=== PATIENT | female | born 1985 | race African-American/Black ===

== ENCOUNTER 2024-11-02 21:33 | Emergency (ER) | payer OTHER ==
[~2024-11-02] VITALS: Ht 172.7 cm; Wt 82.0 kg
[2024-11-02 21:36] VITALS: TEMP 36.9; O2SAT 98
[2024-11-02] MEDS: SODIUM CHLORIDE 0.9% 1,000 ML IV ONE (23:08)
[2024-11-02 23:17] LABS: BASOPHILS % 1.2 % (0.0-2.0); EOSINOPHILS % 2.7 % (0.0-5.0); HEMATOCRIT. 35.0 % (36.0-48.0); HEMOGLOBIN. 11.4 g/dL (12.0-16.0); LYMPHOCYTES % 43.9 % (20.0-50.0); MEAN PLATELET VOLUME 8.7 fl (7.4-10.4); MONOCYTES % 9.2 % (2.0-8.0); NEUTROPHILS % 43.0 % (40.0-76.0); PLATELET 231 x1000/uL (130-400); RED BLOOD CELL COUNT 3.96 mill/uL (4.2-5.4); RED CELL DISTRIBUTION WIDTH 14.8 % (11.6-14.6)
[2024-11-02 23:27] LABS: INR 1.0
[2024-11-02 23:41] LABS: CREATININE 1.2 mg/dL (0.6-1.0)
[2024-11-02 23:42] LABS: UREA NITROGEN BLOOD 13 mg/dL (9-23)
[2024-11-02 23:44] LABS: ASPARTATE AMINOTRANSFERASE 17 IU/L (<34); BILIRUBIN DIRECT 0.1 mg/dL (<=3.0); BILIRUBIN TOTAL 0.5 mg/dL (0.1-1.0); PROTEIN TOTAL 7.0 g/dL (6.0-8.3); TROPONIN I HIGH SENSITIVITY < 4 ng/L (3.0-34)
[2024-11-03 01:26] VITALS: BP 119/78; PULSE 74; RESP 17; O2SAT 100
== END 2024-11-03 01:28 | disposition home or self-care (01) ==
LOC: ER 21:33 → EDBD 21:33 → ER 11-03 01:28
DX: R07.89 Other chest pain (principal); F41.9 Anxiety disorder, unspecified; E03.9 Hypothyroidism, unspecified; Z88.3 Allergy status to other anti-infective agents
CPT/HCPCS: 99285; 96360; 71045; 80076; 80048; 83880; 83690; 85025; 85379; 85610; 85730; 84484; 36415; 93005; J7030